=== PATIENT | male | born 2000 | race Two or more races ===

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

== ENCOUNTER 2020-07-10 11:37 | Emergency (ER) | payer OTHER ==
[~2020-07-10] VITALS: Ht 175.3 cm; Wt 70.3 kg
[2020-07-10] MEDS ORDERED: PROZAC10 MG PO (11:46)
[2020-07-10] MEDS ORDERED: PEPCID AC10 MG PO (17:13)
== END 2020-07-10 17:29 | disposition home or self-care (01) ==
LOC: EMR PED 11:37 → ER 11:37 → EMR PED 12:07
DX: R14.0 Abdominal distension (gaseous) (principal); R10.84 Generalized abdominal pain; R19.7 Diarrhea, unspecified; Z11.52 Encounter for screening for COVID-19